=== PATIENT | male | born 1995 | race Caucasian/White ===

== ENCOUNTER 2023-04-23 22:03 | Emergency (ER) | payer BC, OTHER ==
[~2023-04-23] VITALS: Ht 177.8 cm; Wt 81.6 kg
[~2023-04-23 22:03] MED LIST: ALBU8.5H4 IH; LORA10CA PO
[2023-04-23 22:21] VITALS: BP 131/85; TEMP 98; O2SAT 99
[2023-04-23] MEDS ORDERED: BACI/NEOM/POLY B OINT PKT 1 UDPKT PACKET TP ONE (22:30)
[2023-04-23] MEDS ORDERED: AMOX-430 PO (22:54)
[2023-04-23] MEDS ORDERED: IBUP-1955 PO (22:54)
[2023-04-23] MEDS ORDERED: IBUPROFEN 600 MG TABLET PO ONE (23:00)
== END 2023-04-23 23:08 | disposition home or self-care (01) ==
LOC: ER 22:09
DX: S61.452A Open bite of left hand, initial encounter (principal); Z60.2 Problems related to living alone; W54.0XXA Bitten by dog, initial encounter; Y93.89 Activity, other specified; Y92.89 Other specified places as the place of occurrence of the external cause; Y99.8 Other external cause status
CPT/HCPCS: 73130-TC